=== PATIENT | female | born 1995 | race Two or more races ===

== ENCOUNTER 2016-11-24 09:46 | Emergency (ER) | payer OTHER ==
[2016-11-24 09:50] VITALS: BP 136/90; TEMP 97.8; BMI 25.7
--- NOTE | 2016-11-24 10:01 | ED.PDOC ---
General ED Provider: Dr. BECCA ISBELL JR Chief Complaint: Abdominal Pain Stated Complaint: aching pain to RLQ woke her up. denies urinary not feel well at work yesterday low grade fever began at 04:00. : 05/23/15 : Ill-appearing, Obese URTI (acute upper respiratory infection), PharyngitisAmoxicillin 500 mg PO BID #20 tablet. : 08/11/13 Dr. CARLOS LING Pharyngitis, Streptococcal sore throat. Augmentin 500 po bid x 10 days Time Seen by Physician: 09:59 Mode of Arrival: Walk-In Information Source: Patient Exam Limitations: No limitations [facility] Documentation Reviewed and Agree: No Review of Systems - Review Of Systems Constitutional: Reports: Malaise Eyes: Reports: No symptoms Ears, Nose, Mouth, Throat: Reports: No symptoms Respiratory: Reports: No symptoms Cardiac: Reports: No symptoms GI: Reports: Abdominal pain (RLQ), Poor appetite : Reports: No symptoms, Other (normal earlier now really drk in er) Musculoskeletal: Reports: Back pain Skin: Reports: No symptoms Neurological: Reports: No symptoms Endocrine: Reports: No symptoms Hematologic/Lymphatic: Reports: No symptoms All Other Systems: Other Past Medical History - Past Medical History Previously Healthy: Yes Endocrine: Reports: None Cardiovascular: Reports: None Respiratory: Reports: None Hematological: Reports: None Gastrointestinal: Reports: None Genitourinary: Reports: None Neuro/Psych: Reports: None Musculoskeletal: Reports: Other (elbow fracture) Cancer: Reports: None Last Menstrual Period: 08/19 on depo shot - Surgical History General Surgical History: Reports: None - Family History Family History: Reports: None - Social History Smoking Status: Never smoker Hx Substance Use: No Alcohol Screening: None Physical Exam - Physical Exam Appearance: Well-appearing Ill-appearing: Mild Pain Distress: Moderate Eyes: ROSA, EOMI, Conjunctiva clear ENT: Ears normal, Nose normal, Oropharynx normal Neck: Supple Respiratory: Airway patent, Breath sounds clear, Breath sounds equal, Respirations nonlabored Cardiovascular: RRR, Pulses normal, No rub, No murmur GI/: Soft, No masses, Tender (RLQ mild rebound tender right flank), Bowel sounds hypoactive Musculoskeletal: Normal strength, ROM intact, No edema, No calf tenderness Skin: Warm, Dry, Normal color Neurological: Sensation intact, Motor intact, Reflexes intact, Cranial nerves intact, Alert, Oriented Psychiatric: Affect appropriate, Mood appropriate Critical Care Note - Critical Care Note Total Time (mins): 5 Course - Course Hematology/Chemistry: 11/24/16 10:05 11/24/16 10:05 Orders, Labs, Meds: Lab Review 11/24/16 10:05 WBC 4.06 L RBC 5.14 Hgb 12.8 Hct 38.5 MCV 74.9 L MCH 24.9 L MCHC 33.2 RDW Coeff of Martha 13.8 Plt Count 197 Immature Gran % (Auto) 0.0 Neut % (Auto) 51.3 Lymph % (Auto) 35.7 [place] % (Auto) 9.1 Eos % (Auto) 2.7 Baso % (Auto) 1.2 Immature Gran # (Auto) 0.0 Neut # 2.1 Lymph # 1.5 [place] # 0.4 Eos # 0.1 Baso # 0.1 Sodium 139 Potassium 3.5 Chloride 106 Carbon Dioxide 21 Anion Gap 15.5 BUN 7 Creatinine 0.68 Estimated GFR (MDRD) 110.00 BUN/Creatinine Ratio 10.29 Glucose 102 Calcium 9.3 Total Bilirubin 0.29 AST 13 L ALT 12 Alkaline Phosphatase 78 Total Protein 7.2 Albumin 3.9 Globulin 3.3 Albumin/Globulin Ratio 1.18 Amylase 35 Lipase 27 Urine Color Yellow Urine Clarity Turbid Urine pH 6.5 Ur Specific [place] 1.025 Urine Protein 2+ Urine Glucose (UA) Negative Urine Ketones Negative Urine Blood 3+ Urine Nitrite Negative Urine Bilirubin Negative Urine Urobilinogen 0.2 Ur Leukocyte Esterase Negative Urine Microscopic RBC 50-100 Ur Squamous Epith Cells 5-10 Urine Test Negative H. pylori IgG Antibody Negative Orders Category Date Time Status AMYLASE Stat LAB 11/24/16 10:05 Completed CBC W/ AUTO DIFF Stat LAB 11/24/16 10:05 Completed COMPREHENSIVE METABOLIC PANEL Stat LAB 11/24/16 10:05 Completed H. PYLORI SCREEN Stat LAB 11/24/16 10:05 Completed LIPASE Stat LAB 11/24/16 10:05 Completed URINALYSIS C & S IF INDICATED Stat LAB 11/24/16 10:05 Completed URINE Stat LAB 11/24/16 10:05 Completed Naproxen [Naprosyn] MEDS 11/24/16 10:40 Discontinued 500 mg PO ONCE STA CT ABDOMEN/PELVIS WO CONTRAST Stat RADS 11/24/16 10:00 Completed Medications Discontinued Medications Generic Name Dose Route Start Last Admin Trade Name Evert PRN Reason Stop Dose Admin Naproxen 500 mg 11/24/16 10:40 11/24/16 10:49 Naprosyn PO 11/24/16 10:41 500 mg ONCE STA Administration Vital Signs: Temp Pulse Resp BP Pulse Ox 11/24/16 09:47 97.8 F 101 H 16 136/90 98 Departure - Departure Time of Disposition: 11:25 Disposition: HOME SELF-CARE Discharge Problem: Abdominal pain Hematuria Qualifiers: Hematuria type: other microscopic Qualifier Code: (R31.29) Other microscopic hematuria Instructions: Hematuria (ED), Acute Abdominal Pain (ED) Condition: Good Pt referred to PMD for follow-up: Yes Additional Instructions: pain medication as needed plenty of fluids check on urine results in two days with PMD daily temperature return if fever over 101.0 strain all urine Prescriptions: Hydrocodone Bit/Acetaminophen [[place] 5-325] 1 - 2 tab PO Q6HR PRN #12 tablet PRN Reason: pain Naproxen [Naprosyn] 500 mg PO Q12HR PRN #30 tablet PRN Reason: PAIN Allergies/Adverse Reactions: Allergies No Known Allergies Allergy (Verified 11/24/16 09:50) Home Medications: Ambulatory Orders Hydrocodone Bit/Acetaminophen [[place] 5-325] 1 - 2 tab PO Q6HR PRN #12 tablet Naproxen [Naprosyn] 500 mg PO Q12HR PRN #30 tablet 11/24/16
[2016-11-24 10:12] LABS: BASOPHILS # (AUTO) 0.1 K/uL (0-0.2); BASOPHILS % (AUTO) 1.2 % (0.0-3.0); EOSINOPHILS # (AUTO) 0.1 K/ul (0.0-0.7); EOSINOPHILS % (AUTO) 2.7 % (0.0-7.0); HEMATOCRIT 38.5 % (37.0-47.0); HEMOGLOBIN 12.8 g/dl (12.0-16.0); LYMPHOCYTES # (AUTO) 1.5 K/uL (0.60-3.4); LYMPHOCYTES % (AUTO) 35.7 (10.0-50.0); MEAN CORPUSCULAR HEMOGLOBIN 24.9 pg (27.0-31.0); MEAN CORPUSCULAR HGB CONC 33.2 (31.8-35.4); MEAN CORPUSCULAR VOLUME 74.9 fl (81.0-99.0); MONOCYTES # (AUTO) 0.4 K/uL (0.4-2.0); MONOCYTES % (AUTO) 9.1 (0-10); NEUTROPHILS # (AUTO) 2.1 K/ul (2.0-6.9); NEUTROPHILS % (AUTO) 51.3; PLATELET COUNT 197 10^3/uL (140-440); RED BLOOD COUNT 5.14 10^6/ul (4.20-5.40); WHITE BLOOD COUNT 4.06 K/ul (4.6-10.2)
[2016-11-24 10:23] LABS: BILIRUBIN,URINE Negative (NEGATIVE); KETONES,URINE Negative (NEGATIVE); LEUKOCYTE ESTERASE ,URINE Negative (NEGATIVE); NITRITE,URINE Negative (NEGATIVE); PH,URINE 6.5 (5-9); PROTEIN,URINE 2+ (NEGATIVE); URINE PREGNANCY INTERNAL QC INTERNAL QC VALID; URINE, BLOOD 3+ (NEGATIVE)
[2016-11-24 10:26] LABS: ADD URINE MICROSCOPIC YES
[2016-11-24 10:27] LABS: H. PYLORI ANTIBODY NEGATIVE (NEGATIVE); H.PYLORI INTERNAL QC INTERNAL QC VALID
[2016-11-24 10:33] LABS: ALBUMIN 3.9 g/dL (3.4-5.0); ALBUMIN/GLOBULIN RATIO 1.18; ANION GAP 15.5; BILIRUBIN,TOTAL 0.29 mg/dL (0.00-1.20); BUN/CREATININE RATIO 10.29; CALCIUM 9.3 mg/dL (8.2-10.2); CREATININE 0.68 mg/dL (0.60-1.30); POTASSIUM 3.5 mmol/L (3.5-5.10); TOTAL PROTEIN 7.2 g/dL (6.4-8.2)
[2016-11-24] MEDS ORDERED: NAPROSYN PO STA (10:40)
--- NOTE | 2016-11-24 10:51 | CT ---
EXAM: CT of the abdomen pelvis without contrast History: Right lower quadrant abdominal pain Comparison: Abdominal radiograph 07/06/2015, CT abdomen pelvis 06/09/2009 Technique: Multiplanar CT images through the abdomen pelvis were obtained without the administratio n of IV contrast Findings: Lung bases are clear. No acute osseous abnormalities. No renal stones and no hydronephrosis. The entire appendix is not seen. There are no secondary sig ns of appendicitis. No bowel obstruction. No peripancreatic inflammation. Adrenal glands are unre markable. No focal liver or splenic lesions. No discrete gallstones identified by CT. No peripanc reatic inflammation. Adrenal glands are unremarkable. No free air and no ascites. No bladder wall thickening. Adnexal structures are not well evaluated without IV contrast but demonstrate no gross abnormality. Moderate stool seen within the rectosigmoid colon. Impression: 1. No definite acute intra-abdominal or pelvic process identified. If symptoms persist, recommend further evaluation with contrast enhanced study to include both IV and enteric contrast. 2. Moderate stool within the rectosigmoid colon.
== END 2016-11-24 11:39 | disposition home or self-care (01) ==
LOC: ED 09:46
DX: R10.31 Right lower quadrant pain (principal); R31.29 Other microscopic hematuria
CPT/HCPCS: 36415; 80053; 81001; 81025; 82150; 83690; 85025; 86677; 99283

== ENCOUNTER 2016-11-26 17:03 | Emergency (ER) ==
[2016-11-26 17:06] VITALS: BP 144/95; TEMP 98.9; BMI 27.4
[2016-11-26] MEDS ORDERED: TORADOL IM STA (17:27)
[2016-11-26] MEDS ORDERED: ZOFRAN 4 MG/2 ML IVP STA (17:33)
[2016-11-26 17:34] LABS: BILIRUBIN,URINE Negative (NEGATIVE); KETONES,URINE Trace (NEGATIVE); LEUKOCYTE ESTERASE ,URINE Negative (NEGATIVE); NITRITE,URINE Negative (NEGATIVE); PH,URINE 5.5 (5-9); PROTEIN,URINE 1+ (NEGATIVE); URINE, BLOOD 3+ (NEGATIVE)
[2016-11-26 17:36] LABS: ADD URINE MICROSCOPIC YES; URINE PREGNANCY INTERNAL QC INTERNAL QC VALID
[2016-11-26 17:37] LABS: BASOPHILS # (AUTO) 0.1 K/uL (0-0.2); BASOPHILS % (AUTO) 0.5 % (0.0-3.0); EOSINOPHILS # (AUTO) 0.1 K/ul (0.0-0.7); EOSINOPHILS % (AUTO) 1.4 % (0.0-7.0); HEMATOCRIT 39.9 % (37.0-47.0); HEMOGLOBIN 13.4 g/dl (12.0-16.0); IMMATURE GRANULOCYTE % (AUTO) 0.3 % (0.0-5.0); LYMPHOCYTES # (AUTO) 2.5 K/uL (0.60-3.4); LYMPHOCYTES % (AUTO) 27.2 (10.0-50.0); MEAN CORPUSCULAR HGB CONC 33.6 (31.8-35.4); MEAN CORPUSCULAR VOLUME 74.4 fl (81.0-99.0); MONOCYTES # (AUTO) 0.5 K/uL (0.4-2.0); MONOCYTES % (AUTO) 5.8 (0-10); NEUTROPHILS % (AUTO) 64.8; PLATELET COUNT 289 10^3/uL (140-440); RED BLOOD COUNT 5.36 10^6/ul (4.20-5.40)
[2016-11-26 17:37] LABS: BACTERIA,URINE 1+ (NOT PRESENT)
[2016-11-26 17:55] LABS: ALBUMIN 4.3 g/dL (3.4-5.0); ALBUMIN/GLOBULIN RATIO 1.3; ANION GAP 12.5; BILIRUBIN,TOTAL 0.21 mg/dL (0.00-1.20); BUN/CREATININE RATIO 13.69; CALCIUM 9.6 mg/dL (8.2-10.2); CREATININE 0.73 mg/dL (0.60-1.30); POTASSIUM 3.5 mmol/L (3.5-5.10); TOTAL PROTEIN 7.6 g/dL (6.4-8.2)
--- NOTE | 2016-11-26 18:17 | ED.PDOC ---
General ED Provider: Dr. CASEY FREY Chief Complaint: Nausea/Vomiting Stated Complaint: back pain /fanl pain left Time Seen by Physician: 17:06 (seen with nayan rodriguez) Mode of Arrival: Walk-In Information Source: Patient Exam Limitations: No limitations [facility] Documentation Reviewed and Agree: Yes ( was seen last friday for same issue returns ) Musculoskeletal Complaint Exam - Back Pain Complaint/Exam Mechanism of Injury: Reports: No known trauma Onset/Duration: started last friday Symptoms Are: Still present Timing: Intermittent Episodes Lasting: Days Initial Severity: Moderate Location: Reports: Discrete Aggravating: Reports: None Alleviating: Reports: None Associated Signs and Symptoms: Denies: Swelling, Redness, Bruising, Fever, Weakness, Numbness, Tingling, Abdominal pain, Flank pain, Bladder incontinence, Bowel incontinence, Weight loss, Pain with weight bearing Related History: Reports: Similar episode TAD Risk Factors: Reports: None AAA Risk Factors: Reports: None Cauda Equina Risk Factors: Reports: None Epidural Abcess Risk Factors: Reports: None Related Surgical History: Reports: None Focal Tenderness: No Paraspinal Muscle Tenderness: No Paraspinal Muscle Spasm: No Scoliosis: No Lordosis: No Kyphosis: No SLR Test: Right Negative, Left Negative Hip Motion Testing Pain: Right Negative, Left Negative Focal Weakness: Present: None Focal Sensory Loss: Present: None Gait: Present: Normal Differential Diagnoses: Strain, Sprain Review of Systems - Review Of Systems Constitutional: Reports: No symptoms Eyes: Reports: No symptoms Ears, Nose, Mouth, Throat: Reports: No symptoms Respiratory: Reports: No symptoms Cardiac: Reports: No symptoms GI: Reports: No symptoms : Reports: No symptoms Musculoskeletal: Reports: Back pain Skin: Reports: No symptoms Neurological: Reports: No symptoms Endocrine: Reports: No symptoms Hematologic/Lymphatic: Reports: No symptoms All Other Systems: Reviewed and Negative Past Medical History - Past Medical History Previously Healthy: Yes Endocrine: Reports: None Cardiovascular: Reports: None Respiratory: Reports: None Hematological: Reports: None Gastrointestinal: Reports: None Genitourinary: Reports: None Neuro/Psych: Reports: None Musculoskeletal: Reports: Other (elbow fracture) Cancer: Reports: None Last Menstrual Period: depo - Surgical History General Surgical History: Reports: None - Family History Family History: Reports: None - Social History Smoking Status: Never smoker Hx Substance Use: No Alcohol Screening: None Physical Exam - Physical Exam Appearance: Well-appearing, No pain distress, Well-nourished Eyes: ROSA, EOMI, Conjunctiva clear ENT: Ears normal, Nose normal, Oropharynx normal Respiratory: Airway patent, Breath sounds clear, Breath sounds equal, Respirations nonlabored Cardiovascular: RRR, Pulses normal, No rub, No murmur GI/: Soft, Nontender, No masses, Bowel sounds normal, No Organomegaly Musculoskeletal: Normal strength, ROM intact, No edema, No calf tenderness Skin: Warm, Dry, Normal color Neurological: Sensation intact, Motor intact, Reflexes intact, Cranial nerves intact, Alert, Oriented Psychiatric: Affect appropriate, Mood appropriate Critical Care Note - Critical Care Note Total Time (mins): 0 Course - Course Hematology/Chemistry: 11/26/16 17:30 11/26/16 17:30 Orders, Labs, Meds: Lab Review 11/26/16 11/26/16 17:10 17:30 WBC 9.20 D RBC 5.36 Hgb 13.4 Hct 39.9 MCV 74.4 L MCH 25.0 L MCHC 33.6 RDW Coeff of [place] 13.9 Plt Count 289 Immature Gran % (Auto) 0.3 Neut % (Auto) 64.8 Lymph % (Auto) 27.2 [place] % (Auto) 5.8 Eos % (Auto) 1.4 Baso % (Auto) 0.5 Immature Gran # (Auto) 0.0 Neut # 6.0 Lymph # 2.5 [place] # 0.5 Eos # 0.1 Baso # 0.1 Sodium 139 Potassium 3.5 Chloride 105 Carbon Dioxide 25 Anion Gap 12.5 BUN 10 Creatinine 0.73 Estimated GFR (MDRD) 102.00 BUN/Creatinine Ratio 13.69 Glucose 95 Calcium 9.6 Total Bilirubin 0.21 AST 15 ALT 15 Alkaline Phosphatase 69 Total Protein 7.6 Albumin 4.3 Globulin 3.3 Albumin/Globulin Ratio 1.30 Urine Color Yellow Urine Clarity Cloudy Urine pH 5.5 Ur Specific [place] >=1.030 Urine Protein 1+ Urine Glucose (UA) Negative Urine Ketones Trace Urine Blood 3+ Urine Nitrite Negative Urine Bilirubin Negative Urine Urobilinogen 0.2 Ur Leukocyte Esterase Negative Urine Microscopic RBC 20-30 Ur Squamous Epith Cells 0-2 Urine Bacteria 1+ Urine Test Negative Orders Category Date Time Status CBC W/ AUTO DIFF Stat LAB 11/26/16 17:30 Completed COMPREHENSIVE METABOLIC PANEL Stat LAB 11/26/16 17:30 Completed URINALYSIS C & S IF INDICATED Stat LAB 11/26/16 17:10 Completed URINE CULTURE Stat LAB 11/26/16 17:10 Received URINE Stat LAB 11/26/16 17:10 Completed Ketorolac Tromethamine [Toradol] MEDS 11/26/16 17:27 Discontinued 60 mg IM ONCE STA Ondansetron HCl/Pf [Zofran 4 mg/2 ml] MEDS 11/26/16 17:33 Discontinued 4 mg IVP ONCE STA CT ABDOMEN/PELVIS WO CONTRAST Stat RADS 11/26/16 17:[address] LUMBAR SPINE W/O CONTRAST Stat RADS 11/26/16 17:32 Taken Medications Discontinued Medications Generic Name Dose Route Start Last Admin Trade Name Freq PRN Reason Stop Dose Admin Ketorolac Tromethamine 60 mg 11/26/16 17:27 11/26/16 17:47 Toradol IM 11/26/16 17:28 60 mg ONCE STA Administration Ondansetron HCl 4 mg 11/26/16 17:33 11/26/16 17:46 Zofran 4 Mg/2 Ml IVP 11/26/16 17:34 4 mg ONCE STA Administration Vital Signs: Temp Pulse Resp BP Pulse Ox 11/26/16 17:03 98.9 F 94 H 18 144/95 H 99 Departure - Departure Time of Disposition: 18:17 Disposition: HOME SELF-CARE Discharge Problem: Hematuria Back pain Qualifiers: Back pain location: low back pain Chronicity: unspecified Instructions: Acute Low Back Pain (ED) Condition: Good Pt referred to PMD for follow-up: Yes Additional Instructions: Please call your Family Physician as soon as possible to schedule a follow-up appointment. Prescriptions: Nabumetone [Relafen] 500 mg PO BIDWM #8 tablet Allergies/Adverse Reactions: Allergies No Known Allergies Allergy (Verified 11/26/16 17:07) Home Medications: Ambulatory Orders Nabumetone [Relafen] 500 mg PO BIDWM #8 tablet 11/26/16 Disposition Discussed With: Patient
--- NOTE | 2016-11-26 18:42 | CT ---
Exam: CT lumbar spine without contrast History: Back pain Technique: [address] lumbar spine with multiplanar reformations FINDINGS: Lumbar spine shows normal alignment. Vertebral body height is maintained. No fracture l ethel or suspicious bony lesions. No degenerative changes. No paravertebral soft tissue incidental right hydronephrosis and hydroureter with the field of view. Sacrum is intact. Impression: 1. Normal CT lumbar spine 2. Right hydronephrosis and hydroureter within the field of study.
--- NOTE | 2016-11-26 18:43 | CT ---
Exam: CT scan of the abdomen pelvis without contrast. Date: 11/26/2016. Comparison: 11/24/2016. HISTORY: Pain. TECHNIQUE: Helical scan of the abdomen pelvis was performed without contrast. FINDINGS: The lung bases are clear. The lumbar spine and bony pelvis are within normal limits. The spleen and liver have a uniform attenuation. The gallbladder, stomach, pancreas and adrenal gla nds are normal. The kidneys have a normal morphology. There is possible right hydronephrosis and h ydroureter but the study is limited due the lack of intravenous contrast. No calcifications are obs erved. No retroperitoneal adenopathy is present. Aorta does not exceed 3 cm. The small bowel and appendix are normal. The colon, pelvic sidewall and bladder are normal. The uterus and adnexa are normal. There is no free pelvic fluid. The rectum inguinal regions are normal. Impression: Image detail is limited, but there is possible right hydronephrosis and hydroureter, bu t without a visible obstructing calculus. This is nonspecific but could represent pyelonephritis or possible obstruction from a radiolucent calculus or debris. Consider ultrasound for further evalua tion.
--- NOTE | 2016-11-26 19:57 | DI ---
Exam: Single view abdomen. Date: 11/26/2016. Comparison: 07/06/2015. HISTORY: Renal colic. FINDINGS: The lumbar spine and bony pelvis are within normal limits. Gas is scattered throughout n ondistended loops of small bowel and colon. No suspicious masses or calcifications are seen. Impression: Nonobstructive bowel gas pattern. If further evaluation for renal calculi is needed th en a CT scan could be performed.
== END 2016-11-26 20:14 | disposition home or self-care (01) ==
LOC: ED 17:03
DX: M54.5 Low back pain (principal); R31.9 Hematuria, unspecified; R11.2 Nausea with vomiting, unspecified
CPT/HCPCS: 36415; 80053; 81001; 81025; 85025; 87086; 96372; 99283

== ENCOUNTER 2017-12-15 12:21 | Outpatient (CLI) | END 2017-12-15 12:22 | disposition home or self-care (01) | LOC: RHC-LAB 12:21 | PROVIDERS: ATTEND Nurse Practitioner Family | DX: J02.9 Acute pharyngitis, unspecified (principal) | CPT/HCPCS: 87651 ==